=== PATIENT | male | born 2000 | race Caucasian/White ===

== ENCOUNTER 2023-11-13 11:34 | Outpatient (AMB) | payer BC, SELFPAY ==
--- NOTE | 2023-11-13 11:50 | AM.OFFWIN_ITS ---
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 Pt states no falls or injuries Patient Tobacco Use Status: Never used Tobacco Allergies No Known Allergies Allergy (Verified 11/13/23 11:52) Do you need a note to return to daycare/school/sports/work: Yes HPI HPI Comments History of Present Illness Details This is a 23-year-old male with no stated past medical history presenting for evaluation of right wrist pain that he has had for the past 10 days. 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 He denies any injury or trauma to his right wrist or right hand. Patient describes the pain as 7/10 aching sensation when he lifts heavy items or uses his right hand and wrist repetitively. Patient is complaining of a 7/10 aching sensation on the ulnar aspect of his right wrist. Patient denies any right hand pain. Patient has been wearing a right wrist splint for the past 2 days with some relief however has not taken any ogly-zxx-cxwltei medication for treatment of his discomfort. [facility] Social History Patient Tobacco Use Status: Never used Tobacco Review of Systems Const All systems reviewed & are unremarkable except as noted in HPI and below Musc Reports no additional complaints, Reports limited range of motion (right wrist) and Denies radiating pain into limb Skin/Breast Reports system reviewed and no additional complaints, except as documented Neuro Reports no additional complaints Physical Exam Vital Signs: Last Vital Signs Temp 98.3 F 11/13/23 11:52 Pulse 68 11/13/23 11:52 BP 120/80 11/13/23 11:52 Pulse Ox 99 11/13/23 11:52 Oxygen Delivery Method Room Air 11/13/23 11:52 BMI result Body Mass Index 19.8 Const General: cooperative, healthy appearing, comfortable and no acute distress Nutritional Appearance: average body habitus Orientation/consciousness: patient oriented x3 Limitations: no limitations Skin General skin exam: no rashes or lesions noted Neuro General: patient oriented x3 Extrem General: Yes normal to inspection and Yes capillary refill normal (digits of the right hand) Right upper extremity: normal to inspection, full ROM and wrist Details: tenderness Location: of the distal ulna (lateral distal right ulna), normal vascular exam, radial pulse present and other (pain with ulnar deviation of the right wrist); no deformity, Tinel's positive and Phalen's positive Assessment & Plan Assessment & Plan (1) Sprain of right wrist: Comment: Patient will continue wearing his right wrist splint daily and request alternative duties at work to decrease strain on the right wrist. Code(s): S63.501A - Unspecified sprain of right wrist, initial encounter Qualifiers: Encounter type: initial encounter Qualified Code(s): S63.501A - Unspecified sprain of right wrist, initial encounter Plan: Naprosyn 500mg q12 x 7-10 days. Medications: New naproxen (Naprosyn) 500 mg PO BID 20 tabs 0RF Coding Level of Care Code New Pt Level 3 (85335) Diagnoses Sprain of right wrist, initial encounter S63.501A Encounter type: initial encounter Time Spent (min) 20
[2023-11-13 11:52] VITALS: BP 120/80; PULSE 68; TEMP 36.8; O2SAT 99; BMI 19.8
== END 2023-11-13 12:23 | disposition home or self-care (01) ==
PROVIDERS: PCP Pediatrics; Visit Provider Physician Assistant
DX: S63.501A Unspecified sprain of right wrist, initial encounter (principal)
CPT/HCPCS: 99203

== ENCOUNTER 2024-12-28 12:19 | Outpatient (AMB) | payer BC, SELFPAY ==
[2024-12-28 12:23] VITALS: BP 106/76; PULSE 73; RESP 18; TEMP 37; O2SAT 96; BMI 22.0
--- NOTE | 2024-12-28 12:23 | A.OFFPC_ITS ---
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 He does not report any ongoing symptoms or health issues. The patient affirmatively denies any symptoms related to cardiopulmonary, gastrointestinal, genitourinary, or psychiatric systems. There is no mention of previous medical history, treatment, or lifestyle factors influencing his health. The history focuses solely on the absence of symptoms or concerns. Health Maintenance - Plan to obtain laboratory tests for pr eventative screening in the near future Social History Review of Systems - Cardiovascular: Denies chest pain. - Respiratory: Denies shortness of breat h. - Psychiatric: Denies anxiety, depressio n, suicidal ideation, or homicidal ideation. - Gastrointestinal: Denies abdominal anna n or blood in stool. - Genitourinary: Denies urinary issues. Physical Exam General: Cooperative, healthy appearing, comfortable, no acute distress and well developed Orientation: Patient oriented x3 Limitations: No limitations Head: Normal to inspection Ears: Hearing grossly normal bilaterally Nose: Normal external nose present Face and sinus: Normal facial exam Eyes: Appearance normal, both eyes and all related structures Neck: Normal visual inspection and Yes full ROM Respiratory: Normal respiratory effort and able to speak in complete sentences. Clear to auscultation bilaterally Cardiovascular: Regular rate and rhythm. Normal S1 and S2 GI: Normal to inspection. Soft to palpation and nontender Skin: No rashes or lesions noted Neuro: Patient oriented x3 Extremities: Normal to inspection Results Plan The main goal for this new patient visit was to conduct a wellness exam and initiate the process of gathering routine laboratory evaluations. The patient has no current symptoms that require acute management. Ongoing preventive care includes arranging necessary laboratories to ensure comprehensive monitoring. Discussion Notes I informed the patient about the routine nature of today's physical exam and the importance of obtaining laboratory tests for preventive health monitoring. No specific risks or additional management options were discussed due to the absence of presenting symptoms or conditions. Follow-up will be contingent on the laboratory results obtained, none of which have been conducted at present. Patient Instructions - Schedule laboratory tests in the near future for routine health monitoring. - Await contact for further discussion o nce laboratory results are available. - Reach out for any new symptoms or conc erns prior to the next visit. [facility] Surgical History [place] teeth extracted No pertinent past surgical history Social History Housing: House Alcohol intake: current Alcohol intake frequency: a few times a week Patient Tobacco Use Status: Never used Tobacco e-Cigarette/Vaping Use: Currently Using service: No Current occupational status: unemployed Cognitive needs: No Hearing needs: No Vision needs: No Questionnaire PHQ-9 Over the last 2 weeks, how often have you been bothered by any of the following problems? 1. Little interest or pleasure in doing things: not at all 2. Feeling down, depressed, or hopeless: not at all 3. Trouble falling or staying asleep, or sleeping too much: not at all 4. Feeling tired or having little energy: not at all 5. Poor appetite or overeating: not at all 6. Feeling bad about yourself - or that you are a failure or have let yourself or your family down: not at all 7. Trouble concentrating on things, such as reading the newspaper or watching television: not at all 8. Moving or speaking so slowly that other people could have noticed. Or the opposite - being so fidgety or restless that you have been moving around a lot more than usual: not at all 9. Thoughts that you would be better off or of hurting yourself in some way: not at all Total score: 0 Depression Screening Interpretation: Negative Depression Screening Done: Yes 62223 - PHQ-9 Billing: Yes Source: Developed by Drs. Chan Cummings, Pat Llamas, Lewis Salter and colleagues, with an educational kayleigh from [employer]. Thrive Questionnaire Date Thrive assessed: 12/28/24 I am a: Patient What is your living situation today?: I have a steady place to live Within the past 12 months, did the food you bought not last and you didn't have the money to get more?: Never true Within the past 12 months, did you worry whether your food would run out before you got money to buy more?: Never true Do you have trouble paying for medicines?: No Do you have trouble getting transportation to medical appointments?: No Do you have trouble paying your heating and electricity bill?: No Do you have trouble taking care of your child, family member or friend?: No Do you have trouble with day-to-day activities such as bathing, preparing meals, shopping, managing finances, etc.?: No Are you currently unemployed and looking for a job?: I choose not to answer this question Are you interested in more education?: No Please select the resources that you would like help with: None Currently or been in a relationship where the following occur: No concerns reported THRIVE Score: 0 AUDIT C Alcohol Use Questionnaire (AUDIT-C) 1. How often do you have a drink containing alcohol?: 2-3 times a week 2. How many drinks containing alcohol do you have on a typical day when you are drinking?: 1 or 2 3. How often do you have six or more drinks on one occasion?: Never Total Score: 3 Score Reviewed/Action Taken: Yes RIAZ-7 AMB Questionnaire RIAZ-7 Date RIAZ - 7 assessed: 12/28/24 Feeling nervous, anxious, or on edge: 0 = Not at all Not being able to stop or control worryin = Not at all Worrying too much about different things: 0 = Not at all Trouble relaxin = Not at all Being so restless that it is hard to sit still: 0 = Not at all Becoming easily annoyed or irritable: 0 = Not at all Feeling afraid as if something awful might happen: 0 = Not at all Total RIAZ-7 score (0-4 normal; 5-9 mild; 10-14 moderate; 15-21 severe): 0 Source: Developed by Drs. Chan Cummings, Pat Llamas, Lewis Salter and colleagues, with an educational kayleigh from [employer] RIAZ-7 Assessment Billing RIAZ-7 Assessment Tool: RIAZ-7 Assessment 05623 Physical exam (Primary Care) Vital Signs: Last Vital Signs Temp 98.6 F 12/28/24 12:23 Pulse 73 12/28/24 12:23 Resp 18 12/28/24 12:23 BP 106/76 12/28/24 12:23 Pulse Ox 96 12/28/24 12:23 Oxygen Delivery Method Room Air 12/28/24 12:23 BMI result Body Mass Index 22.0 Tobacco/Smoking Status: Tobacco use Status Tobacco use date assessed 12/28/24 12/28/24 12:25 Patient Tobacco Use Status Never used Tobacco 12/28/24 12:34 e-Cigarette/Vaping Use Currently Using 12/28/24 12:43 PHQ-9: PHQ-9 Score PHQ-9: Total score 0 12/28/24 12:43 Depression Screening Interpretation: Negative Thrive Assessment: Date of Thrive Assessment Date Thrive assessed 12/28/24 12/28/24 12:25 Currently or been in a relationship where the following occur: No concerns reported Coding Level of Care Code Est Pt Prev Care 18-39y(40413) Diagnoses Physical exam Z00. Additional Codes RIAZ-7 Assessment Billing - RIAZ-7 Assessment Tool: RIAZ-7 Assessment 65698 ([id number]) PHQ-9 - 10344 - PHQ-9 Billing: Yes ([id number]) Assessment & Plan Assessment & Plan (1) Physical exam: Code(s): Z00.00 - Encounter for general adult medical examination without abnormal findings Category: Medical Plan . Orders: Orders Complete Blood Count Auto Diff Today Z00.00 - Encounter for general adult medical examination without abnormal findings Comprehensive [place]. Panel Fast Today Z00.00 - Encounter for general adult medical examination without abnormal findings TSH reflex Free T4 Today Z00.00 - Encounter for general adult medical examination without abnormal findings UA CC w/rflx Micro + Cult Today Z00.00 - Encounter for general adult medical examination without abnormal findings Lipid Panel Today Z00.00 - Encounter for general adult medical examination without abnormal findings
--- OUTSIDE RECORDS SUMMARY | 2024-12-28 14:27 | XMS_ITS | Encounter Summary ---
Author Organization [facility] Address [address] [place] [address] Phone Care Team Providers Care Printing Equipment Mechanic Apprentice Name Role Phone Provider, Beni BRANDT Primary Care Provider [phone] Encounter Details Date Type Department Care Team (Late st Contact Info) Description 12/04/2011 Documentation [facility] [place] Family Medicine [address] [place] [address] Family Medicine, Physician [address] [place] [address] Social History Tobacco Use Types Packs/Day Years Used Date Smoking Tobacco: Never Assessed Sex and Gender Information Value Date Recorded Sex Assigned at Male 02/10/2020 4:29 PM EDT Legal Sex Male 4:56 PM EDT Gender Identity Male 02/10/2020 4:29 PM EDT Sexual Orientation Straight 02/10/2020 4: 29 PM EDT documented as of this encounter Plan of Treatment Not on file documented as of this encounter Visit Diagnoses Not on filedocumented in this encounter Care Teams Printing Equipment Mechanic Apprentice Relationship Specialty Start Date End Date Provider, MD Beni [address] [place] [address] PCP - General Pediatrics 03/28/22 10/07/23 documented as of this encounter
--- OUTSIDE RECORDS SUMMARY | 2024-12-28 14:27 | XMS_ITS | Encounter Summary ---
Author Organization [facility] Address [address] [place] [phone] Phone Care Team Providers Care Property Adjuster Name Role Phone Provider, Beni BRANDT Primary Care Provider [phone] Encounter Details Date Type Department Care Team (Late st Contact Info) Description 07/17/2016 Documentation [facility] [place] Family Medicine [address] [place] [address] Family Medicine, Physician [place] [address] Social History Tobacco Use Types [...] on filedocumented in this encounter Care Teams Property Adjuster Relationship Specialty Start Date End Date Provider, MD Beni [address] [place] [address] PCP - General Pediatrics 03/28/22 10/07/23 documented as of this encounter
--- OUTSIDE RECORDS SUMMARY | 2024-12-28 14:27 | XMS_ITS | Encounter Summary ---
Author Organization [facility] Address [address] [place] [phone] Phone Care Team Providers Care Geothermal Sheet Metal Worker Name Role Phone Provider, Beni BRANDT Primary Care Provider [phone] Encounter Details Date Type Department Care Team (Late st Contact Info) Description 09/09/2014 Documentation [facility] [place] Family Medicine [address] [place] [address] Family Medicine, Physician [address] [place] [address] Social History Tobacco Use Types [...] on filedocumented in this encounter Care Teams Geothermal Sheet Metal Worker Relationship Specialty Start Date End Date Provider, MD Beni [address] [place] [address] PCP - General Pediatrics 03/28/22 10/07/23 documented as of this encounter
--- OUTSIDE RECORDS SUMMARY | 2024-12-28 14:27 | XMS_ITS | Encounter Summary ---
Author Organization [facility] Address [address] [place] [phone] Phone Care Team Providers Care Personal Service Workers Name Role Phone Provider, Beni BRANDT Primary Care Provider [phone] Encounter Details Date Type Department Care Team (Late st Contact Info) Description 07/18/2016 Documentation [facility] [place] Family Medicine [address] [place] [address] Family Medicine, Physician [facility] [place] [address] Social History Tobacco Use Types [...] on filedocumented in this encounter Care Teams Personal Service Workers Relationship Specialty Start Date End Date Provider, MD Beni [address] [place] [address] PCP - General Pediatrics 03/28/22 10/07/23 documented as of this encounter
--- OUTSIDE RECORDS SUMMARY | 2024-12-28 14:27 | XMS_ITS | Encounter Summary ---
Author Organization [facility] Address [address] [place] [phone] Phone Care Team Providers Care Director Underwriter Sales Name Role Phone Provider, Beni BRANDT Primary Care Provider [phone] Encounter Details Date Type Department Care Team (Late st Contact Info) Description 02/13/2013 Documentation [facility] [place] [address] [place] [address] Family Medicine, Physician [address] [place] [address] Social History Tobacco Use Types [...] on filedocumented in this encounter Care Teams Director Underwriter Sales Relationship Specialty Start Date End Date Provider, MD Beni [address] [place] [address] PCP - General Pediatrics 03/28/22 10/07/23 documented as of this encounter
--- OUTSIDE RECORDS SUMMARY | 2024-12-28 14:27 | XMS_ITS | Clinical Summary ---
Author Organization [facility] Address [address] [place] [phone] Phone Care Team Providers Care Commission Specialist Name Role Phone Unavailable Primary Care Provider Unavailabl e Allergies No known active allergies Medications Cetirizine HCl (ZYRTEC ALLERGY) 10 MG capsule Take by mouth. 7 Active tretinoin 0.025 % cream APPLY SPARINGLY TO FACE AT NIGHT FOR ACNE. 1 0 Active Clindamycin Phos-Benzoyl Perox gel APPLY TO FACE ONCE DAILY IN THE MORNING CAUTION, MAY BLEACH MATERIALS. 0 Active Active Problems Problem Noted Date Diagnosed Date Short stature (child) 07/16/2016 Overview (10/22/2017): Mom 5-5, dad 5-6, other very short family members. Bone age done 2016 was 1.3 SD below mean. Assessment & Plan (02/10/2020 4:36 PM EDT): Has grown well since last year - up to 23 % from 4th%. Appropriate weight gain as well Assessment & Plan (10/22/2017 9:32 AM EST): Mom 5-5, dad 5-6, other very short family members. Because Murray's rate of growth has slowed I have ordered screening labs to rule out causes of slow growth and weight gain. I will call you with lab results. Seasonal allergic rhinitis due to pollen 012 Assessment & Plan (02/10/2020 4:36 PM EDT): Seems to be growing out of seasonal allergies. No acute concerns. Assessment & Plan (01/26/2019 3:17 PM EDT): Well controlled on zyrtec 10 mg daily, use flonase if congestion recurs. Immunizations Immunization Administration Dates Next Due COVID-19 Moderna, monovalent , 12+ years 01/26/2021 DTaP 5 11/20/2007, 4,03/29/2003,02/01,2002 H1N1 12/29/2009,11/04/2009 HPV Vaccine 9 Valent 10/22/2017,07/16/2016 Hep A, ped/adol 01/26/2019,07/16/2016 Hep B, ped/adol 07/08/2003,03/29/2003,2002 Hib (PRP-T) 01/03/2004, 3,02/01/2003,12/11 IPV 11/20/2007, 3,02/01/2003,12/11 Influenza, injectable, quadrivalent 09/08/2014 Influenza, injectable, quadr ivalent, preservative free 07/18/2020,10/07/2018,10/22/2017,07/16 Influenza, injectable, trivalent 11/04/2009,08/29,07/21/2007 Influenza, intranasal, quadrivalent 08/18/2013 Influenza, intranasal, trivalent 08/14/2010 MMR 10/04/2003 MMRV 11/20/2007 Meningococcal Conj (Menactra) MCV4P 01/26/2019,0 03/08/2014 Pneumococcal Conjugate 03/29/2003,02/01/2003, Tdap 03/08/2014 Varicella 10/04/2003 Family History Medical History Relation Name Comments Depression Father's Sister Alcoholism Maternal Grandfather Diabetes Maternal Grandmother Anxiety disorder Mother's Brother Relation Name Status Comments Father Alive Father: Alive a nd well Father's Sister Maternal Grandfather Maternal Grandmother Mother Alive Mother: Alive a nd well Mother's Brother Other No family histo ry of CVA (Stroke), No family history of Dental caries, No family history of Thrombophilia, No family history of Sudden /HI under age 55 Sister Alive Sister: Alive a nd well Social History Tobacco Use Types Packs/Day Years Used Date Smoking Tobacco: Never Smokeless Tobacco: Never Tobacco Cessation:Counseling Given: Yes Alcohol Use Standard Drinks/Week Comments Never 0 (1 standard drink = 0.6 oz pur e alcohol) Hunger/Food Answer Date Recorded In the last 12 months, did y ou or your family ever eat less than you felt you should because there wasn't enough money for food? No 02/11/2021 Stable Housing Answer Date Recorded Are you worried that in the next 2 months you may not have stable housing? No 02/11/2021 Transportation Concerns Answer Date Rec orded In the last 12 months, have you or your family ever had to go without healthcare because you didn't have a way to get there? No 02/11/2021 Hazards in Home Answer Date Recorded Think about the place you li ve. Do you have problems with any of the following? Pests (mice or roaches), mold, no/not working smoke detectors, water leaks, no window guards. No 2020 Financing Utilities Answer Date Recorde d In the last 12 months, has t he electric, gas, oil, or water company threatened to shut off your services in your home? No 02/11/2021 Safety at Home Answer Date Recorded Are you or your family worried about feeling saf e in your home? No 02/11/2021 Outside Support Answer Date Recorded Do you feel that you need mo re support from other people or programs to help you care for yourself or your family? No 02/11/2021 Understanding Health Concerns Answer Da te Recorded Do you need help understandi ng your or your child's healthcare needs (diagnosis, medications, plan, etc.)? No 02/11/2021 Financing Health Concerns Answer Date R ecorded In the last 12 months, was t here a time when your child needed to see a doctor or get medications or supplies but could not because of cost? No 02/11/2021 Missing School or Work Answer Date Donny rded Did you or your child miss s chool or work because of a health problem that could have been avoided? No 02/11/2021 Sex and Gender Information Value Date Recorded Sex Assigned at Male 02/10/2020 4:29 PM EDT Legal Sex Male 4:56 PM EDT Gender Identity Male 02/10/2020 4:29 PM EDT Sexual Orientation Straight 02/10/2020 4: 29 PM EDT Last Filed Vital Signs Vital Sign Reading Time Taken Comments Blood Pressure 133/77 09/18/2021 6:01 PM EST Pulse 102 09/18/2021 6:01 PM EST Temperature 36.2 ??C (97.2 ??F) 09/18/2021 6:01 PM ES T Respiratory Rate - - Oxygen Saturation - - Inhaled Oxygen Concentration - - Weight 59.2 kg (130 lb 9.6 oz) 09/18/2021 6:01 P M EST Height 172.7 cm (5' 8 ) 09/18/2021 6:01 PM EST Body Mass Index 19.86 09/18/2021 6:01 PM EST Plan of Treatment Health Maintenance Due Date Last Done Comments Men B Vaccine (1 of 2 - Standard) 2018 DTaP,Tdap,and Td Vaccines (7 - Td or Tdap) 03/08/2024 03/08/2014, 11/20/2007, 03/30/2004, Additional history exists Influenza Vaccines (#1) 2024 07/18/20 20, 10/07/2018, 10/22/2017, Additional history exists COVID-19 Vaccine ( season) 2024 02/23/2021, 01/26/2021 Pneumococcal Vaccine Aged Out 03/29/2003, 02/01/2003, 2002 No longer eligible based on patient's age to complete this topic Hepatitis B Vaccines Completed 07/08/2003, 03/29/2003, 2002 HIB Vaccines Completed 01/03/2004, 11/2002, 02/01/2003, Additional history exists IPV Vaccines Completed 11/20/2007, 06/28, 02/01/2003, Additional history exists MMR Vaccines Completed 11/20/2007, 10/04/2003 Varicella Vaccines Completed 11/20/2007, 10/04/2003 HPV Vaccines Completed 10/22/2017, 07/16/2016 Hepatitis A Vaccines Completed 01/26/2019, 07/16/20 16 Meningococcal Vaccine Completed 01/26/2019, 014 Insurance [facility] PPO
--- OUTSIDE RECORDS SUMMARY | 2024-12-28 14:27 | XMS_ITS | Encounter Summary ---
Author Organization [facility] Address [address] [place] [address] Phone Care Team Providers Care Plater Printed Circuit Board Panels Name Role Phone Provider, Beni BRANDT Primary Care Provider [phone] Encounter Details Date Type Department Care Team (Late st Contact Info) Description 03/09/[address] [facility] [place] Family Medicine [address] [place] [address] Family Medicine, Physician [address] [place] [address] Social History Tobacco Use Types [...] on filedocumented in this encounter Care Teams Plater Printed Circuit Board Panels Relationship Specialty Start Date End Date Provider, MD Beni [address] [place] [address] PCP - General Pediatrics 03/28/22 10/07/23 documented as of this encounter
--- OUTSIDE RECORDS SUMMARY | 2024-12-28 14:27 | XMS_ITS | Encounter Summary ---
Author Organization [facility] Address [address] [place] [address] Phone Care Team Providers Care Cleaner Signs Name Role Phone Provider, Beni BRANDT Primary Care Provider [phone] Encounter Details Date Type Department Care Team (Late st Contact Info) Description 09/09/2014 Documentation [facility] [place] [address] [place] [address] Family Medicine, Physician [address] [place] [address] Social History Tobacco Use Types [...] on filedocumented in this encounter Care Teams Cleaner Signs Relationship Specialty Start Date End Date Provider, MD Beni [address] [place] [address] PCP - General Pediatrics 03/28/22 10/07/23 documented as of this encounter
--- OUTSIDE RECORDS SUMMARY | 2024-12-28 14:27 | XMS_ITS | Encounter Summary ---
Author Organization [facility] Address [address] [place] [address] Phone Care Team Providers Care Glass Driller Name Role Phone Provider, Beni BRANDT Primary Care Provider [phone] Encounter Details Date Type Department Care Team (Late st Contact Info) Description 03/11/2015 Documentation [facility] [place] [address] [place] [address] Family Medicine, Physician [address] [place] [address] Social History Tobacco Use Types [...] on filedocumented in this encounter Care Teams Glass Driller Relationship Specialty Start Date End Date Provider, MD Beni [address] [place] [address] PCP - General Pediatrics 03/28/22 10/07/23 documented as of this encounter
--- OUTSIDE RECORDS SUMMARY | 2024-12-28 14:27 | XMS_ITS | Encounter Summary ---
Author Organization [facility] Address [address] [place] [address] Phone Care Team Providers Care Soil Scientist Name Role Phone Provider, Beni BRANDT Primary Care Provider [phone] Encounter Details Date Type Department Care Team (Late st Contact Info) Description 03/11/2015 Documentation [facility] Family Medicine [address] [place] [address] Family Medicine, Physician [address] [place] [address] Social History Tobacco Use Types [...] on filedocumented in this encounter Care Teams Soil Scientist Relationship Specialty Start Date End Date Provider, MD Beni [address] [place] [address] PCP - General Pediatrics 03/28/22 10/07/23 documented as of this encounter
--- OUTSIDE RECORDS SUMMARY | 2024-12-28 14:27 | XMS_ITS | Encounter Summary ---
Author Organization [facility] Address [address] [place] [address] Phone Care Team Providers Care Slicing Machine Feeder Name Role Phone Provider, Beni BRANDT Primary Care Provider [phone] Encounter Details Date Type Department Care Team (Late st Contact Info) Description 02/13/2013 Documentation [facility] [place] Family Medicine [address] [place] [address] Family Medicine, Physician [address] [place] [address] Social History Tobacco Use Types [...] on filedocumented in this encounter Care Teams Slicing Machine Feeder Relationship Specialty Start Date End Date Provider, MD Beni [address] [place] [address] PCP - General Pediatrics 03/28/22 10/07/23 documented as of this encounter
--- OUTSIDE RECORDS SUMMARY | 2024-12-28 14:27 | XMS_ITS | Encounter Summary ---
Author Organization [facility] Address [address] [place] [address] Phone Care Team Providers Care Saddle And Harness Maker Name Role Phone Provider, Beni BRANDT Primary Care Provider [phone] Encounter Details Date Type Department Care Team (Late st Contact Info) Description 07/18/2016 Documentation [facility] Family Medicine [address] [place] [address] Family Medicine, Physician [facility] [place] [address] Social History Tobacco Use Types [...] on filedocumented in this encounter Care Teams Saddle And Harness Maker Relationship Specialty Start Date End Date Provider, MD Beni [address] [place] [address] PCP - General Pediatrics 03/28/22 10/07/23 documented as of this encounter
--- OUTSIDE RECORDS SUMMARY | 2024-12-28 14:27 | XMS_ITS | Data Portability ---
Author Organization [facility] [address] Address [address] [place] [address] Assessment No assessment recorded. Plan of Treatment Reminders Order Date Submit Date Provider Last Modified By Organization Details Last Modified Time Details Appointments None record ed. Lab None record ed. Referral None record ed. Procedures None record ed. Surgeries None record ed. Imaging XR, foot, 3 or more view 03/11/20 JOSE LUIS [facility], [address] [place], [address], 14:32:41 Medication Orders None record ed. Patient TargetsNo targets recorded. Patient Instructions Encounter Date Encounter Id Patient Instructions Last Modified By Organization Details Last Modified Time 03/11/2023 [id number] contusion: care instructions Not available 03/11/2023 13:24:54 learning about rice (rest, ice, compression, and elevation) Not available 03/11/2023 13:06:06 Reason for Referral None Reported. Results Created Date Observation Date Name Description Value Unit Range Abnormal Flag Note LastModifiedBy Organization Detail LastModifiedTime 03/11/20 23 03/11/2023 XR, foot, 3 or more view No observ ation record ed. [email or web address] [address] [place], [address], 03/11/2023 15:08:45 Result Notes None recorded. Problems No Known Problems Procedures Surgical History None recorded. Imaging Results Imaging Date Name Status LastModified by Organiz ation Details LastModified Time 03/11/2023 XR, foot, 3 or more view completed [email or web address] [address] [facility], [place], [address], 03/11/2023 15:08:45 Procedure Notes None recorded. Medical Equipment None Reported. Allergies No known drug allergies Medications Not known to be on any medication Vitals Date Recorded Body height Body mass index (BMI) Body mass index (BMI) Percentile per age and sex Body weight Pain severity - 0-10 verbal numeric rating [Score] - Reported Respiratory rate Oxygen saturation Oxygen saturation in Arterial blood by Pulse oximetry Heart rate Body temperature Systolic blood pressure Diastolic blood pressure Provider Name and Address Organization Details Last Updated DateTime 172.72 cm 19.8 kg/m2 8 % 23452.0 1 g 5 20 /min 100 % 100 % 95 /min 98.1 [degF] 112 mm[Hg] 69 mm[Hg] Leann Liu PA [employer] 12:49:20 Social History Question Answer Notes LastModified by [employer] Details LastModified Time Tobacco Smoking Status Never Smoker Leann pastrana PA - [facility] 03/11/2023 12:47:49 What Is Your Level Of Alcohol Consumption? None Information not available 03/11/2023 Have You Had Direct Contact, Or Contact During Intimacy, With Monkeypox Rash, Scabs, Or Body Fluids From A Person With Monkeypox? No Information not available 03/11/2023 Do You Use Any Illicit Or Recreational Drugs? No Information not available 03/11/2023 Have You Recently Traveled Abroad? No Information not available 03/11/2023 Do You Or Have You Ever Used Any Other Forms Of Tobacco Or Nicotine? No Information not available 03/11/2023 Sex: Unknown Functional Status None recorded. Mental Status None recorded. Family History Relationship Description Onset Age of this Age Resolved Age Notes LastModified by Organization Details LastModified Time Father No current problems or disability Not available 03/11 12:47:45 Mother No current problems or disability Not available 03/11 12:47:45 Medical History No medical history recorded. Past Encounters Encounter ID Performer Location Encounter Start Date Encounter Closed Date Diagnosis/Indication Diagnosis SNOMED-CT Code Diagnosis ICD10 Code Diagnosis Note [id number] Sarah Bates MD [address] [facility] [place] [address] 03/11/2023 12:32:00 03/11/2023 13:30:31 Pain in right foot 1809416073 98741 M79.671 Xraty negative for Fracture Contusion of right foot 3261136489 4081446 S90.31XA Health Concerns Section Related Observation LastModified by Organization Detai ls LastModified Time None Recorded Concern Status LastModified by Organization Details LastModified Time None Recorded Advance Directives Directive None Recorded Payers Encounter Date Sequence Insurance Name Policy Number Policy Egan Covered Member ID Egan Member ID Guarantor Name 03/11/2023 1 [place] ([place]) [id number] Josué Wolff [id number] [address]ion Notes Date Note Type Note Provider Name and Address Organization Details Recorded Time 03/11/2023 text/html Foot/Ankle UCReported bypatient.Locatio n:right Probleminjury Duration:2 days Associated Symptoms:no weakness; no numbness; no tingling; no redness; no warmth; no ecchymosis;swelli ng Aggravating factors:walking Sarah Bates MD [address] [place] [address] [place], [address], [place] - [facility] 03/12/2023 09:30:03
--- OUTSIDE RECORDS SUMMARY | 2024-12-28 14:27 | XMS_ITS | Encounter Summary ---
Author Organization [facility] Address [address] [place] [address] Phone Care Team Providers Care Remote Recruiter Name Role Phone Provider, Beni BRANDT Primary Care Provider [phone] Encounter Details Date Type Department Care Team (Late st Contact Info) Description 07/18/2016 Documentation [facility] [place] Family Medicine [address] [place] [address] Family Medicine, [place] [address] Social History Tobacco Use Types [...] on filedocumented in this encounter Care Teams Remote Recruiter Relationship Specialty Start Date End Date Provider, MD Beni [address] [place] [address] PCP - General Pediatrics 03/28/22 10/07/23 documented as of this encounter
--- OUTSIDE RECORDS SUMMARY | 2024-12-28 14:27 | XMS_ITS | Encounter Summary ---
Author Organization [facility] Address [address] [place] [address] Phone Care Team Providers Care Photographer Still Name Role Phone Provider, Beni BRANDT Primary Care Provider Encounter Details Date Type Department Care Team (Late st Contact Info) Description 06/13/2017 Conversion Encounter [facility] [place] [address] [place], [place] [phone] Social History Tobacco Use Types Packs/Day Years [...] on filedocumented in this encounter Care Teams Photographer Still Relationship Specialty Start Date End Date Provider, MD Beni [address] [place] [phone] PCP - General Pediatrics 03/28/22 10/07/23 documented as of this encounter
--- OUTSIDE RECORDS SUMMARY | 2024-12-28 14:27 | XMS_ITS | Encounter Summary ---
Author Organization [facility] Address [address] [place] [address] Phone Care Team Providers Care Punch Card Operator Name Role Phone Provider, Beni BRANDT Primary Care Provider [phone] Encounter Details Date Type Department Care Team (Late st Contact Info) Description 08/19/2013 Documentation [facility] [place] Family Medicine [address] [place] [address] Family Medicine, Physician [address] [place] [address] Social History Tobacco Use Types [...] on filedocumented in this encounter Care Teams Punch Card Operator Relationship Specialty Start Date End Date Provider, MD Beni [address] [place] [address] PCP - General Pediatrics 03/28/22 10/07/23 documented as of this encounter
--- OUTSIDE RECORDS SUMMARY | 2024-12-28 14:27 | XMS_ITS | Encounter Summary ---
Author Organization [facility] Address [address] [place] [address] Phone Care Team Providers Care Student Life Coordinator Name Role Phone Provider, Beni BRANDT Primary Care Provider [phone] Encounter Details Date Type Department Care Team (Late st Contact Info) Description 07/17/2016 Documentation [facility] [place] Family Medicine [address] [place] [address] Family Medicine, Physician [facility] [place] [address] Social History Tobacco Use Types [...] on filedocumented in this encounter Care Teams Student Life Coordinator Relationship Specialty Start Date End Date Provider, MD Beni [address] [place] [address] PCP - General Pediatrics 03/28/22 10/07/23 documented as of this encounter
--- OUTSIDE RECORDS SUMMARY | 2024-12-28 14:27 | XMS_ITS | Encounter Summary ---
Author Organization [facility] Address [address] [place] [address] Phone Care Team Providers Care Logging Worker Name Role Phone Provider, Beni BRANDT Primary Care Provider [phone] Encounter Details Date Type Department Care Team (Late st Contact Info) Description 11/25/2012 [place]ation [facility] [place] [address] [place] [address] Family Medicine, Physician [address] [place] [address] Social History Tobacco Use Types [...] on filedocumented in this encounter Care Teams Logging Worker Relationship Specialty Start Date End Date Provider, MD Beni [address] [place] [address] PCP - General Pediatrics 03/28/22 10/07/23 documented as of this encounter
--- OUTSIDE RECORDS SUMMARY | 2024-12-28 14:27 | XMS_ITS | Encounter Summary ---
Author Organization [facility] Address [address] [place] [address] Phone Care Team Providers Care Clinical Research Analyst Name Role Phone Provider, Beni BRANDT Primary Care Provider [phone] Encounter Details Date Type Department Care Team (Late st Contact Info) Description 03/09/2014 Documentation [facility] [place] Family Medicine [address] [place] [address] Family Medicine, Physician [address] [place] [address] Social History Tobacco Use Types [...] on filedocumented in this encounter Care Teams Clinical Research Analyst Relationship Specialty Start Date End Date Provider, MD Beni [address] [place] [address] PCP - General Pediatrics 03/28/22 10/07/23 documented as of this encounter
== END 2024-12-28 13:23 | disposition home or self-care (01) ==
PROVIDERS: PCP Nurse Practitioner Family; Visit Provider Nurse Practitioner Family
DX: Z00.00 Encounter for general adult medical examination without abnormal findings (principal)

== ENCOUNTER → 2024-12-28 12:19 | Outpatient (BNVA) | payer BC, SELFPAY | PROVIDERS: PCP Nurse Practitioner Family; Visit Provider Nurse Practitioner Family | DX: Z00.00 Encounter for general adult medical examination without abnormal findings (principal) | CPT/HCPCS: 96127 ==

== ENCOUNTER 2025-02-26 12:39 | Outpatient (REF) | payer BC, SELFPAY ==
--- OUTSIDE RECORDS SUMMARY | 2025-02-26 13:04 | XMS_ITS | Encounter Summary ---
Author Organization [facility] Address [address] [place] [address] Phone Care Team Providers Care Computer Security Manager Name Role Phone Provider, Beni BRANDT Primary Care Provider [phone] Encounter Details Date Type Department Care Team (Late st Contact Info) Description 07/18/2016 Documentation [facility] [place] Family Medicine [address] [place], [place] [address] Family Medicine, Physician [address] [place] [address] Social History Tobacco Use Types Packs/Day Years [...] on filedocumented in this encounter Care Teams Computer Security Manager Relationship Specialty Start Date End Date Provider, MD Beni [address] [place] [address] PCP - General Pediatrics 03/28/22 10/07/23 documented as of this encounter
--- OUTSIDE RECORDS SUMMARY | 2025-02-26 13:04 | XMS_ITS | Encounter Summary ---
Author Organization [facility] Address [address] [place] [address] Phone Care Team Providers Care Branch Manager Trainee Name Role Phone Provider, Beni BRANDT Primary Care Provider [phone] Encounter Details Date Type Department Care Team (Late st Contact Info) Description 07/17/2016 Documentation [facility] [place] [address] [place], [place] [address] Family Medicine, Physician [address] [place] [address] Social History Tobacco Use Types Packs/Day Years [...] on filedocumented in this encounter Care Teams Branch Manager Trainee Relationship Specialty Start Date End Date Provider, MD Beni [address] [place] [address] PCP - General Pediatrics 03/28/22 10/07/23 documented as of this encounter
--- OUTSIDE RECORDS SUMMARY | 2025-02-26 13:04 | XMS_ITS | Encounter Summary ---
Author Organization [facility] Address [address] [place] [address] Phone Care Team Providers Care Corn Cooker Name Role Phone Provider, Beni BRANDT Primary Care Provider [phone] Encounter Details Date Type Department Care Team (Late st Contact Info) Description 03/11/2015 Documentation [facility] [place] Family Medicine [address] [place], [place] [id number] Family Medicine, Physician [address] [place] [address] Social History Tobacco Use Types Packs/Day Years [...] on filedocumented in this encounter Care Teams Corn Cooker Relationship Specialty Start Date End Date Provider, MD Beni [address] [place] [address] PCP - General Pediatrics 03/28/22 10/07/23 documented as of this encounter
--- OUTSIDE RECORDS SUMMARY | 2025-02-26 13:04 | XMS_ITS | Clinical Summary ---
Author Organization [facility] Address [address] [place] [address] Phone Care Team Providers Care Generator Rebuilder Name Role Phone Unavailable Primary Care Provider [...] mg daily, use flonase if congestion recurs. Encounters Date Type Department Care Team Description 12/31/2024 Telephone [facility] - [address] [address] Tiny Diaz MD Medical Records from Last 3 Months Immunizations Immunization Administration Dates Next Due COVID-19 [...] of Thrombophilia, No family history of Sudden /[place] under age 55 Sister Alive Sister: Alive [...] 16 Meningococcal Vaccine Completed 01/26/2019, 014 Insurance [facility] PPO
--- OUTSIDE RECORDS SUMMARY | 2025-02-26 13:04 | XMS_ITS | Encounter Summary ---
Author Organization [facility] Address [address] [place] [address] Phone Care Team Providers Care Digital Associate Media Director Name Role Phone Provider, Beni BRANDT Primary Care Provider [phone] Encounter Details Date Type Department Care Team (Late st Contact Info) Description 07/17/2016 Documentation [facility] [place] Family Medicine [address] [place], [place] [address] Family Medicine, Physician [address] [place] [address] Social History Tobacco Use Types Packs/Day Years [...] on filedocumented in this encounter Care Teams Digital Associate Media Director Relationship Specialty Start Date End Date Provider, MD Beni [address] [place] [address] PCP - General Pediatrics 03/28/22 10/07/23 documented as of this encounter
--- OUTSIDE RECORDS SUMMARY | 2025-02-26 13:04 | XMS_ITS | Encounter Summary ---
Author Organization [facility] Address [address] [place] [address] Phone Care Team Providers Care Director Of Sales Marketing Name Role Phone Provider, Beni BRANDT Primary Care Provider [phone] Encounter Details Date Type Department Care Team (Late st Contact Info) Description 02/13/2013 Documentation [facility] [place] [address] [place], [place] [address] Family Medicine, Physician [address] [place] [address] Social History Tobacco Use Types Packs/Day Years [...] filedocumented in this encounter Care Teams Director Of Sales Marketing Relationship Specialty Start Date End Date Provider, MD Beni [address] [place] [address] PCP - General Pediatrics 03/28/22 10/07/23 documented as of this encounter
--- OUTSIDE RECORDS SUMMARY | 2025-02-26 13:04 | XMS_ITS | Encounter Summary ---
Author Organization [facility] Address [address] [place] [address] Phone Care Team Providers Care Excelsior Machine Feeder Name Role Phone Provider, Beni BRANDT Primary Care Provider [phone] Encounter Details Date Type Department Care Team (Late st Contact Info) Description 11/25/2012 Documentation [facility] [place] Family Medicine [address] [place], [place] [address] Family Medicine, Physician [address] [place] [address] Social History Tobacco Use Types Packs/Day Years [...] on filedocumented in this encounter Care Teams Excelsior Machine Feeder Relationship Specialty Start Date End Date Provider, MD Beni [address] [place] [address] PCP - General Pediatrics 03/28/22 10/07/23 documented as of this encounter
--- OUTSIDE RECORDS SUMMARY | 2025-02-26 13:04 | XMS_ITS | Encounter Summary ---
Author Organization [facility] Address [address] [place], [place] [address] Phone Care Team Providers Care Chiropractic Doctor Name Role Phone Provider, Beni BRANDT Primary Care Provider [phone] Encounter Details Date Type Department Care Team (Late st Contact Info) Description 08/19/2013 Documentation [facility] [place] [address] [place], [place] [phone] Family Medicine, Physician [address] [place] [address] Social History Tobacco Use Types Packs/Day Years [...] on filedocumented in this encounter Care Teams Chiropractic Doctor Relationship Specialty Start Date End Date Provider, MD Beni [address] [place] [phone] PCP - General Pediatrics 03/28/22 10/07/23 documented as of this encounter
--- OUTSIDE RECORDS SUMMARY | 2025-02-26 13:04 | XMS_ITS | Encounter Summary ---
Author Organization [facility] Address [address] [place] [address] Phone Care Team Providers Care Mash Tub Cooker Name Role Phone Provider, Beni BRANDT Primary Care Provider [phone] Encounter Details Date Type Department Care Team (Late st Contact Info) Description 12/04/2011 [place] [facility] [place] [address] [place], [place] [address] Family Medicine, Physician [address] [place] [address] Social History Tobacco Use Types Packs/Day Years [...] on filedocumented in this encounter Care Teams Mash Tub Cooker Relationship Specialty Start Date End Date Provider, MD Beni [address] [place] [phone] PCP - General Pediatrics 03/28/22 10/07/23 documented as of this encounter
--- OUTSIDE RECORDS SUMMARY | 2025-02-26 13:04 | XMS_ITS | Encounter Summary ---
Author Organization [facility] Address [address] [place] [address] Phone Care Team Providers Care Project Executive Name Role Phone Provider, Beni BRANDT Primary Care Provider [phone] Encounter Details Date Type Department Care Team (Late st Contact Info) Description 07/18/2016 Documentation [facility] [place] Family Medicine [address] [place], [place] [phone] Family Medicine, Physician [address] [place] [address] Social History Tobacco Use Types Packs/Day Years [...] on filedocumented in this encounter Care Teams Project Executive Relationship Specialty Start Date End Date Provider, MD Beni [address] [place] [phone] PCP - General Pediatrics 03/28/22 10/07/23 documented as of this encounter
--- OUTSIDE RECORDS SUMMARY | 2025-02-26 13:04 | XMS_ITS | Encounter Summary ---
Author Organization [facility] Address [address] [place] [address] Phone Care Team Providers Care Senior Safety Management Consultant Name Role Phone Provider, Beni BRANDT Primary Care Provider [phone] Encounter Details Date Type Department Care Team (Late st Contact Info) Description 03/11/2015 Documentation [facility] [place] Family Medicine [address] [place], [place] [phone] Family Medicine, Physician [address] [place] [address] Social History Tobacco Use Types Packs/Day Years [...] on filedocumented in this encounter Care Teams Senior Safety Management Consultant Relationship Specialty Start Date End Date Provider, MD Beni [address] [place] [phone] PCP - General Pediatrics 03/28/22 10/07/23 documented as of this encounter
--- OUTSIDE RECORDS SUMMARY | 2025-02-26 13:04 | XMS_ITS | Encounter Summary ---
Author Organization [facility] Address [address] [place] [address] Phone Care Team Providers Care Production Solderer Name Role Phone Provider, Beni BRANDT Primary Care Provider [phone] Encounter Details Date Type Department Care Team (Late st Contact Info) Description 03/09/2014 Documentation [facility] [place] Family Medicine [address] [place], [place] [phone] Family Medicine, Physician [address] [place] [address] Social History Tobacco Use Types Packs/Day Years [...] on filedocumented in this encounter Care Teams Production Solderer Relationship Specialty Start Date End Date Provider, MD Beni [address] [place] [phone] PCP - General Pediatrics 03/28/22 10/07/23 documented as of this encounter
--- OUTSIDE RECORDS SUMMARY | 2025-02-26 13:04 | XMS_ITS | Encounter Summary ---
Author Organization [facility] Address [address] [place] [address] Phone Care Team Providers Care Crochet Machine Operator Name Role Phone Provider, Beni BRANDT Primary Care Provider [phone] Encounter Details Date Type Department Care Team (Late st Contact Info) Description 06/13/2017 Conversion Encounter [address] [id number] Social History Tobacco Use Types Packs/Day Years [...] on filedocumented in this encounter Care Teams Crochet Machine Operator Relationship Specialty Start Date End Date Provider, MD Beni [address] [place] [phone] PCP - General Pediatrics 03/28/22 10/07/23 documented as of this encounter
--- OUTSIDE RECORDS SUMMARY | 2025-02-26 13:04 | XMS_ITS | Data Portability ---
Author Organization [facility] [address] Address [address] [place] [address] Assessment No assessment recorded. Plan of Treatment Reminders Order Date Submit Date Provider Last Modified By Organization Details Last Modified Time Details Appointments None record ed. Lab None record ed. Referral None record ed. Procedures None record ed. Surgeries None record ed. Imaging XR, foot, 3 or more view 023 03/11/20 JOSE LUIS [facility], [address] [place], [address], 14:32:41 Medication Orders None record ed. Patient TargetsNo targets recorded. Patient Instructions Encounter Date Encounter Id Patient Instructions Last Modified By Organization Details Last Modified Time 03/11/2023 [id number] contusion: care instructions Not available 03/11/2023 13:24:54 learning about rice (rest, ice, compression, and elevation) Not available 03/11/2023 13:06:06 Reason for Referral None Reported. Results Created Date Observation Date Name Description Value Unit Range Abnormal Flag Note LastModifiedBy Organization Detail LastModifiedTime 03/11/20 23 03/11/2023 XR, foot, 3 or more view No observ ation record ed. [email or web address] [address] [place], [address], 03/11/2023 15:08:45 Result Notes None recorded. Problems No Known Problems Procedures Surgical History None recorded. Imaging Results Imaging Date Name Status LastModified by Organiz ation Details LastModified Time 03/11/2023 XR, foot, 3 or more view completed [email or web address] [address] [facility] [place], [address], 03/11/2023 15:08:45 Procedure Notes None recorded. Medical Equipment None Reported. Allergies No known drug allergies Medications Not known to be on any medication Vitals Date Recorded Body height Body mass index (BMI) Body mass index (BMI) [Percentile] Per age and sex Body weight Pain severity - 0-10 verbal numeric rating [Score] - Reported Respiratory rate Oxygen saturation Oxygen saturation in Arterial blood by Pulse oximetry Heart rate Body temperature Systolic blood pressure Diastolic blood pressure Provider Name and Address Organization Details Last Updated DateTime 172.72 cm 19.8 kg/m2 8 % 67752.0 1 g 5 20 /min 100 % 100 % 95 /min 98.1 [degF] 112 mm[Hg] 69 mm[Hg] Leann Liu PA [employer] 12:49:20 Social History Question Answer Notes LastModified by [facility] Details LastModified Time Tobacco Smoking Status Never Smoker Leann pastrana PA - [facility] 03/11/2023 12:47:49 What Is Your Level Of [...] SNOMED-CT Code Diagnosis ICD10 Code Diagnosis Note [id number] Sarah Bates MD [address] [place] [phone] 03/11/2023 12:32:00 03/11/2023 13:30:31 Pain in right foot 1433662107 12362 M79.671 Xraty negative for Fracture Contusion of right foot 9167197985 2252835 S90.31XA Health Concerns Section Related Observation LastModified by Organization Detai ls LastModified Time None Recorded Concern Status LastModified by Organization Details LastModified Time None Recorded Advance Directives Directive None Recorded Payers Encounter Date Sequence Insurance Name Policy Number Policy Egan Covered Member ID Egan Member ID Guarantor Name 03/11/2023 1 [place]: [employer]AY[employer] (PPO) [id number] Josué Wolff [id number] [address] Sheyla Notes Date Note Type Note Provider Name and Address Organization Details Recorded Time 03/11/2023 text/html Foot/Ankle UCReported bypatient.Locatio n:right Probleminjury Duration:2 days Associated Symptoms:no weakness; no numbness; no tingling; no redness; no warmth; no ecchymosis;swelli ng Aggravating factors:walking Sarah Bates MD [address] [place] [address] [place], [address], [place] - [facility] 03/12/2023 09:30:03
--- OUTSIDE RECORDS SUMMARY | 2025-02-26 13:04 | XMS_ITS | Encounter Summary ---
Author Organization [facility] Address [address] [place] [address] Phone Care Team Providers Care Line Construction Supervisor Name Role Phone Provider, Beni BRANDT Primary Care Provider [phone] Encounter Details Date Type Department Care Team (Late st Contact Info) Description 07/18/2016 Documentation [facility] [place] [address] [place], [place] [phone] Family Medicine, Physician [address] [place] [address] Social History Tobacco Use Types Packs/Day Years [...] on filedocumented in this encounter Care Teams Line Construction Supervisor Relationship Specialty Start Date End Date Provider, MD Beni [address] [place] [phone] PCP - General Pediatrics 03/28/22 10/07/23 documented as of this encounter
--- OUTSIDE RECORDS SUMMARY | 2025-02-26 13:04 | XMS_ITS | Encounter Summary ---
Author Organization [facility] Address [address] [place] [address] Phone Care Team Providers Care Pediatric Lpn Name Role Phone Provider, Beni BRANDT Primary Care Provider [phone] Encounter Details Date Type Department Care Team (Late st Contact Info) Description 09/09/2014 Documentation [facility] [place] Family Medicine [address] [place], [place] [phone] Family Medicine, Physician [address] [place] [address] Social History Tobacco Use Types Packs/Day Years [...] on filedocumented in this encounter Care Teams Pediatric Lpn Relationship Specialty Start Date End Date Provider, MD Beni [address] [place] [phone] PCP - General Pediatrics 03/28/22 10/07/23 documented as of this encounter
--- OUTSIDE RECORDS SUMMARY | 2025-02-26 13:04 | XMS_ITS | Encounter Summary ---
Author Organization [facility] Address [address] [place] [address] Phone Care Team Providers Care Paper Baler Name Role Phone Provider, Beni BRANDT Primary Care Provider [phone] Encounter Details Date Type Department Care Team (Late st Contact Info) Description 02/13/2013 Documentation [facility] [place] Family Medicine [address] [place], [place] [phone] Family Medicine, Physician [address] [place] [address] Social History Tobacco Use Types Packs/Day Years [...] on filedocumented in this encounter Care Teams Paper Baler Relationship Specialty Start Date End Date Provider, MD Beni [address] [place] [phone] PCP - General Pediatrics 03/28/22 10/07/23 documented as of this encounter
--- OUTSIDE RECORDS SUMMARY | 2025-02-26 13:04 | XMS_ITS | Encounter Summary ---
Author Organization [facility] Address [address] [place] [address] Phone Care Team Providers Care Attractions Associate Name Role Phone Provider, Beni BRANDT Primary Care Provider [phone] Encounter Details Date Type Department Care Team (Late st Contact Info) Description 03/09/2014 Documentation [facility] [place] Family Medicine [address] [place], [place] [phone] Family Medicine, Physician [address] [place] [address] Social History Tobacco Use Types Packs/Day Years [...] on filedocumented in this encounter Care Teams Attractions Associate Relationship Specialty Start Date End Date Provider, MD Beni [address] [place] [phone] PCP - General Pediatrics 03/28/22 10/07/23 documented as of this encounter
--- OUTSIDE RECORDS SUMMARY | 2025-02-26 13:05 | XMS_ITS | Encounter Summary ---
Author Organization [facility] Address [address] [place] [address] Phone Care Team Providers Care Hose Tester Name Role Phone Provider, Beni BRANDT Primary Care Provider [phone] Encounter Details Date Type Department Care Team (Late st Contact Info) Description 09/09/2014 Documentation [facility] [place] [address] [place], [place] [phone] Family Medicine, Physician [address] [place] [address] Social History Tobacco Use Types Packs/Day Years [...] on filedocumented in this encounter Care Teams Hose Tester Relationship Specialty Start Date End Date Provider, MD Beni [address] [place] [phone] PCP - General Pediatrics 03/28/22 10/07/23 documented as of this encounter
[2025-02-26 16:01] LABS: MANUAL DIFF FLAG NO
[2025-02-26 16:16] LABS: Basophils Percent Auto 0.4 % (0-2); Eosinophils Absolute Auto 0.2 X10*3/uL (0.0-0.4); Eosinophils Percent Auto 2.2 % (0-4); Hematocrit 47.9 % (42.0-52.0); Hemoglobin 16.9 g/dl (14.0-18.0); Imm Gran Abs Auto 0.03 X10*3/uL (0.00-0.03); Imm Gran Pct Auto 0.4 % (0.0-0.4); Lymphocytes Absolute Auto 2.5 X10*3/uL (1.2-4.9); Lymphocytes Percent Auto 37.2 % (20-40); Mean Corpuscular HGB Conc 35.3 g/dl (31.0-36.0); Mean Corpuscular Hemoglobin 29.7 pg (27.0-33.0); Mean Corpuscular Volume 84.2 fL (80.0-98.0); Mean Platelet Volume 9.2 fL (9.4-12.4); Monocytes Absolute Auto 0.7 X10*3/uL (0.1-1.2); Monocytes Percent Auto 9.7 % (2-11); Neutrophils Absolute Auto 3.4 x10*3/uL (2.0-8.3); Neutrophils Percent Auto 50.1 % (45-73); Platelet Count 230 X10*3/uL (160-400); Red Blood Count 5.69 X10*6/uL (4.60-5.80); Red Cell Distribution Width 12.9 % (11.0-16.0); White Blood Count 6.8 X10*3/uL (4.8-10.8)
[2025-02-26 16:31] LABS: Anion Gap 13 (12-20)
[2025-02-26 16:35] LABS: Alanine Aminotransferase 28 U/L (0-40); Albumin Level 4.8 g/dL (3.5-5.0); Aspartate Amino Transferase 31 U/L (5-37); Bilirubin Total 1.2 mg/dL (0.0-1.0); Blood Urea Nitrogen 13 mg/dL (9-16); Calcium 9.6 mg/dL (8.4-10.2); Carbon Dioxide 27 mmol/L (22-29); Chloride 106 mmol/L (96-108); Cholesterol 132 mg/dL (<200); Estimated Glomerular Filt Rate > 60; Glucose Fasting 85 mg/dL (60-99); HDL Cholesterol 57 mg/dL (>40); LDL Cholesterol Calculated 63 mg/dL (<100); Potassium 4.2 mmol/L (3.3-5.1); Sodium 142 mmol/L (135-145); Total Protein 7.4 g/dL (6.5-8.0); Triglycerides 64 mg/dL (<150)
[2025-02-26 16:50] LABS: Alkaline Phosphatase 82 U/L (39-117)
[2025-02-26 16:57] LABS: TSH reflex Free T4 0.82 uIU/mL (0.32-4.0)
== END 2025-02-26 12:40 | disposition home or self-care (01) ==
LOC: HO.HMGCLDS 12:39
PROVIDERS: PCP Nurse Practitioner Family; Visit Provider Nurse Practitioner Family
DX: Z00.00 Encounter for general adult medical examination without abnormal findings (principal); Z13.6 Encounter for screening for cardiovascular disorders
CPT/HCPCS: 36415; 80053; 80061; 84443; 85025

== ENCOUNTER 2025-02-27 08:45 | Outpatient (REF) | payer BC, SELFPAY ==
--- OUTSIDE RECORDS SUMMARY | 2025-02-27 09:29 | XMS_ITS | Encounter Summary ---
Author Organization [facility] Address [address] [place], [place] [id number] Phone Care Team Providers Care Coil Cleaner Name Role Phone Provider, Beni BRANDT Primary Care Provider [phone] Encounter Details Date Type Department Care Team (Late st Contact Info) Description 08/19/2013 Documentation [facility] [place] Family Medicine [address] [place], [place] [phone] Family Medicine, Physician [address] [place] [address] Social History Tobacco Use Types Packs/Day Years [...] on filedocumented in this encounter Care Teams Coil Cleaner Relationship Specialty Start Date End Date Provider, MD Beni [address] [place] [phone] PCP - General Pediatrics 03/28/22 10/07/23 documented as of this encounter
--- OUTSIDE RECORDS SUMMARY | 2025-02-27 09:29 | XMS_ITS | Encounter Summary ---
Author Organization [facility] Address [address] [place] [address] Phone Care Team Providers Care Captain Fire Prevention Bureau Name Role Phone Provider, Beni BRANDT Primary Care Provider [phone] Encounter Details Date Type Department Care Team (Late st Contact Info) Description 09/09/2014 Documentation [facility] [place] Family Medicine [address] [place], [place] [phone] Family Medicine, Physician [address] [place] [address] Social History Tobacco Use Types Packs/Day Years [...] on filedocumented in this encounter Care Teams Captain Fire Prevention Bureau Relationship Specialty Start Date End Date Provider, MD Beni [address] [place] [phone] PCP - General Pediatrics 03/28/22 10/07/23 documented as of this encounter
--- OUTSIDE RECORDS SUMMARY | 2025-02-27 09:29 | XMS_ITS | Encounter Summary ---
Author Organization [facility] Address [address] [place] [address] Phone Care Team Providers Care Nuclear Chemistry Technician Name Role Phone Provider, Beni BRANDT Primary Care Provider [phone] Encounter Details Date Type Department Care Team (Late st Contact Info) Description 02/13/2013 Documentation [facility] [place] Family Medicine [address] [place], [place] [phone] Family Medicine, Physician [address] [place] [address] Social History Tobacco Use Types Packs/Day Years [...] on filedocumented in this encounter Care Teams Nuclear Chemistry Technician Relationship Specialty Start Date End Date Provider, MD Beni [address] [place] [phone] PCP - General Pediatrics 03/28/22 10/07/23 documented as of this encounter
--- OUTSIDE RECORDS SUMMARY | 2025-02-27 09:29 | XMS_ITS | Encounter Summary ---
Author Organization [facility] Address [address] [place] [address] Phone Care Team Providers Care Nitric Acid Concentrator Operator Name Role Phone Provider, Beni BRANDT Primary Care Provider [phone] Encounter Details Date Type Department Care Team (Late st Contact Info) Description 07/18/2016 Documentation [facility] [place] Family Medicine [address] [place], [place] [phone] Family Medicine, Physician [address] [place] [address] Social History Tobacco Use Types Packs/Day Years [...] on filedocumented in this encounter Care Teams Nitric Acid Concentrator Operator Relationship Specialty Start Date End Date Provider, MD Beni [address] [place] [phone] PCP - General Pediatrics 03/28/22 10/07/23 documented as of this encounter
--- OUTSIDE RECORDS SUMMARY | 2025-02-27 09:29 | XMS_ITS | Encounter Summary ---
Author Organization [facility] Address [address] [place] [address] Phone Care Team Providers Care Radiology Transcriptionist Name Role Phone Provider, Beni BRANDT Primary Care Provider [phone] Encounter Details Date Type Department Care Team (Late st Contact Info) Description 11/25/2012 Documentation [facility] [place] [address] [place], [place] [phone] Family Medicine, Physician [address] [place] [address] Social History Tobacco Use Types Packs/Day Years [...] on filedocumented in this encounter Care Teams Radiology Transcriptionist Relationship Specialty Start Date End Date Provider, MD Beni [address] [place] [phone] PCP - General Pediatrics 03/28/22 10/07/23 documented as of this encounter
--- OUTSIDE RECORDS SUMMARY | 2025-02-27 09:29 | XMS_ITS | Encounter Summary ---
Author Organization [facility] Address [address] [place] [address] Phone Care Team Providers Care Solid Tire Finisher Name Role Phone Provider, Beni BRANDT Primary Care Provider [phone] Encounter Details Date Type Department Care Team (Late st Contact Info) Description 03/09/2014 Documentation [facility] [place] [address] [place], [place] [phone] Family Medicine, Physician [address] [place] [address] Social History Tobacco Use Types Packs/Day Years [...] on filedocumented in this encounter Care Teams Solid Tire Finisher Relationship Specialty Start Date End Date Provider, MD Beni [address] [place] [phone] PCP - General Pediatrics 03/28/22 10/07/23 documented as of this encounter
--- OUTSIDE RECORDS SUMMARY | 2025-02-27 09:29 | XMS_ITS | Encounter Summary ---
Author Organization [facility] Address [address] [place] [address] Phone Care Team Providers Care Test Preparation Tutor Name Role Phone Provider, Beni BRANDT Primary Care Provider [phone] Encounter Details Date Type Department Care Team (Late st Contact Info) Description 03/11/2015 Documentation [facility] [place] Family Medicine [address] [place], [place] [phone] Family Medicine, Physician [address] [place] [address] Social History Tobacco Use Types Packs/Day Years [...] on filedocumented in this encounter Care Teams Test Preparation Tutor Relationship Specialty Start Date End Date Provider, MD Beni [address] [place] [phone] PCP - General Pediatrics 03/28/22 10/07/23 documented as of this encounter
--- OUTSIDE RECORDS SUMMARY | 2025-02-27 09:29 | XMS_ITS | Encounter Summary ---
Author Organization [facility] Address [address] [place] [address] Phone Care Team Providers Care Education And Training Manager Name Role Phone Provider, Beni BRANDT Primary Care Provider [phone] Encounter Details Date Type Department Care Team (Late st Contact Info) Description 03/11/2015 Documentation [facility] [place] [address] [place], [place] [phone] Family Medicine, Physician [address] [place] [address] Social History Tobacco Use Types Packs/Day Years [...] on filedocumented in this encounter Care Teams Education And Training Manager Relationship Specialty Start Date End Date Provider, MD Beni [address] [place] [phone] PCP - General Pediatrics 03/28/22 10/07/23 documented as of this encounter
--- OUTSIDE RECORDS SUMMARY | 2025-02-27 09:29 | XMS_ITS | Encounter Summary ---
Author Organization [facility] Address [address] [place] [address] Phone Care Team Providers Care Detail Assembler Name Role Phone Provider, Beni BRANDT Primary Care Provider [phone] Encounter Details Date Type Department Care Team (Late st Contact Info) Description 07/17/2016 Documentation [facility] [place] [address] [place], [place] [phone] Family Medicine, Physician [address] [place] [address] Social History Tobacco Use Types Packs/Day Years [...] on filedocumented in this encounter Care Teams Detail Assembler Relationship Specialty Start Date End Date Provider, MD Beni [address] [place] [phone] PCP - General Pediatrics 03/28/22 10/07/23 documented as of this encounter
--- OUTSIDE RECORDS SUMMARY | 2025-02-27 09:29 | XMS_ITS | Encounter Summary ---
Author Organization [facility] Address [address] [place] [address] Phone Care Team Providers Care Room Service Runner Name Role Phone Provider, Beni BRANDT Primary Care Provider [phone] Encounter Details Date Type Department Care Team (Late st Contact Info) Description 07/18/2016 Documentation [facility] [place] Family Medicine [address] [place], [place] [phone] Family Medicine, Physician [address] [place] [address] Social History Tobacco Use Types Packs/Day Years [...] on filedocumented in this encounter Care Teams Room Service Runner Relationship Specialty Start Date End Date Provider, MD Beni [address] [place] [phone] PCP - General Pediatrics 03/28/22 10/07/23 documented as of this encounter
--- OUTSIDE RECORDS SUMMARY | 2025-02-27 09:29 | XMS_ITS | Encounter Summary ---
Author Organization [facility] Address [address] [place] [address] Phone Care Team Providers Care Engineering Inspector Name Role Phone Provider, Beni BRANDT Primary Care Provider [phone] Encounter Details Date Type Department Care Team (Late st Contact Info) Description 07/17/2016 Documentation [facility] Family [place] [address] [place], [place] [phone] Family Medicine, Physician [address] [place] [address] Social History Tobacco Use Types Packs/Day Years [...] on filedocumented in this encounter Care Teams Engineering Inspector Relationship Specialty Start Date End Date Provider, MD Beni [address] [place] [phone] PCP - General Pediatrics 03/28/22 10/07/23 documented as of this encounter
--- OUTSIDE RECORDS SUMMARY | 2025-02-27 09:29 | XMS_ITS | Encounter Summary ---
Author Organization [facility] Address [address] [place] [address] Phone Care Team Providers Care Recovery Operator Name Role Phone Provider, Beni BRANDT Primary Care Provider [phone] Encounter Details Date Type Department Care Team (Late st Contact Info) Description 07/18/2016 [place]ation [facility] [place] [address] [place], [place] [phone] Family Medicine, Physician [address] [place] [address] Social History Tobacco Use Types Packs/Day Years [...] on filedocumented in this encounter Care Teams Recovery Operator Relationship Specialty Start Date End Date Provider, MD Beni [address] [place] [phone] PCP - General Pediatrics 03/28/22 10/07/23 documented as of this encounter
--- OUTSIDE RECORDS SUMMARY | 2025-02-27 09:29 | XMS_ITS | Encounter Summary ---
Author Organization [facility] Address [address] [place] [address] Phone Care Team Providers Care Body Welder Name Role Phone Provider, Beni BRANDT Primary Care Provider [phone] Encounter Details Date Type Department Care Team (Late st Contact Info) Description 12/04/2011 Documentation [facility] [place] Family Medicine [address] [place], [place] [phone] Family Medicine, Physician [address] [place] [address] Social History Tobacco Use Types Packs/Day Years [...] on filedocumented in this encounter Care Teams Body Welder Relationship Specialty Start Date End Date Provider, MD Beni [address] [place] [phone] PCP - General Pediatrics 03/28/22 10/07/23 documented as of this encounter
--- OUTSIDE RECORDS SUMMARY | 2025-02-27 09:29 | XMS_ITS | Encounter Summary ---
Author Organization [facility] Address [address] [place] [address] Phone Care Team Providers Care Clinical Research Coordinator Name Role Phone Provider, Beni BRANDT Primary Care Provider [phone] Encounter Details Date Type Department Care Team (Late st Contact Info) Description 03/09/2014 Documentation [facility] [place] Family Medicine [address] [place], [place] [address] Family Medicine, Physician [address] [place] [address] Social History Tobacco Use Types Packs/Day Years [...] in this encounter Care Teams Clinical Research Coordinator Relationship Specialty Start Date End Date Provider, MD Beni [address] [place] [phone] PCP - General Pediatrics 03/28/22 10/07/23 documented as of this encounter
--- OUTSIDE RECORDS SUMMARY | 2025-02-27 09:29 | XMS_ITS | Encounter Summary ---
Author Organization [facility] Address [address] [place] [address] Phone Care Team Providers Care Warranty Manager Name Role Phone Provider, Beni BRANDT Primary Care Provider [phone] Encounter Details Date Type Department Care Team (Late st Contact Info) Description 06/13/2017 Conversion Encounter [address] [phone] Social History Tobacco Use Types Packs/Day Years [...] on filedocumented in this encounter Care Teams Warranty Manager Relationship Specialty Start Date End Date Provider, MD Beni [address] [place] [phone] PCP - General Pediatrics 03/28/22 10/07/23 documented as of this encounter
--- OUTSIDE RECORDS SUMMARY | 2025-02-27 09:29 | XMS_ITS | Clinical Summary ---
Author Organization [facility] Address [address] [place] [phone] Phone Care Team Providers Care Striper Machine Name Role Phone Unavailable Primary Care Provider [...] Type Department Care Team Description 12/31/2024 Telephone [facility] - [address] [address] Tiny Diaz MD Medical Records [...] of Thrombophilia, No family history of Sudden /[place] under age 55 Sister Alive Sister: Alive [...] 16 Meningococcal Vaccine Completed 01/26/2019, 014 Insurance [facility] PPO
--- OUTSIDE RECORDS SUMMARY | 2025-02-27 09:29 | XMS_ITS | Encounter Summary ---
Author Organization [facility] Address [address] [place] [address] Phone Care Team Providers Care Transcribing Operators Supervisor Name Role Phone Provider, Beni BRANDT Primary Care Provider [phone] Encounter Details Date Type Department Care Team (Late st Contact Info) Description 02/13/2013 Documentation [facility] [place] Family Medicine [address] [place], [place] [id number] Family Medicine, Physician [address] [place] [address] Social History Tobacco Use Types Packs/Day Years [...] on filedocumented in this encounter Care Teams Transcribing Operators Supervisor Relationship Specialty Start Date End Date Provider, MD Beni [address] [place] [phone] PCP - General Pediatrics 03/28/22 10/07/23 documented as of this encounter
--- OUTSIDE RECORDS SUMMARY | 2025-02-27 09:29 | XMS_ITS | Encounter Summary ---
Author Organization [facility] Address [address] [place] [address] Phone Care Team Providers Care Applications Engineering Manager Name Role Phone Provider, Beni BRANDT Primary Care Provider [phone] Encounter Details Date Type Department Care Team (Late st Contact Info) Description 09/09/2014 Documentation [facility] [place] [address] [place], [place] [phone] Family Medicine, Physician [address] [place] [address] Social History Tobacco Use Types Packs/Day Years [...] on filedocumented in this encounter Care Teams Applications Engineering Manager Relationship Specialty Start Date End Date Provider, MD Beni [address] [place] [phone] PCP - General Pediatrics 03/28/22 10/07/23 documented as of this encounter
[2025-02-27 12:07] LABS: Appearance Urine Clear; Color Urine Yellow; Glucose Urine UA Negative (Negative); Leukocyte Esterase Urine Negative (Negative); Nitrite Urine Negative (Negative); Urine Blood Negative (Negative); Urine Ketones Negative (Negative); Urine Protein Negative (Neg-Trace)
== END 2025-02-27 08:46 | disposition home or self-care (01) ==
LOC: HO.HMGCLNP 08:45
PROVIDERS: PCP Nurse Practitioner Family; Visit Provider Nurse Practitioner Family
DX: Z00.00 Encounter for general adult medical examination without abnormal findings (principal)
CPT/HCPCS: 81003